=== PATIENT | female | born 1990 | race Two or more races ===

== ENCOUNTER 2018-06-18 10:54 | Emergency (ER) | payer OTHER ==
[2018-06-18 10:58] VITALS: BP 118/76; PULSE 92; TEMP 99.5; BMI 24.5
[2018-06-18] MEDS ORDERED: PENICILLIN G BENZATHINE 1,200,000 UNIT/2 ML PFS IM ONE (11:26)
[2018-06-18] MEDS ORDERED: DEXAMETHASONE LIQUID 0.5 MG/5 ML 240 ML BULK BOTTLE PO ONE (11:26)
--- NOTE | 2018-06-18 11:29 | PDOC ---
History of Present Illness - General Chief Complaint: Cold Symptoms Stated Complaint: COLD SYMPTOMS Time Seen by Provider: 06/18/18 11:14 - History of Present Illness Initial Comments: 06/18/18 11:27 27-year-old female without comorbidities presents for evaluation of sore throat and subjective fever times one day. Past History - Past Medical History Allergies/Adverse Reactions: Allergies Allergy/AdvReac Type Severity Reaction Status Date / Time No Known Allergies Allergy Verified 06/18/18 10:58 Home Medications: Ambulatory Orders NK [No Known Home Medication] 06/18/18 COPD: No CHF: No Other medical history: sickle cell thalasemia - Immunization History Immunization Up to Date: No - Suicide/Smoking/Psychosocial Hx Smoking History: Never smoked Have you smoked in the past 12 months: No Information on smoking cessation initiated: No Hx Alcohol Use: No Drug/Substance Use Hx: No Review of Systems - Review of Systems Constitutional: Yes: Fever HEENTM: Yes: Throat Pain *Physical Exam - Vital Signs Last Vital Signs Temp Pulse Resp BP Pulse Ox 99.5 F 92 H 16 118/76 99 06/18/18 10:55 06/18/18 10:55 06/18/18 10:55 06/18/18 10:55 06/18/18 10:55 - Physical Exam Comments: 06/18/18 11:27 HEAD: NC/AT EYES: Conjuntiva clear Ears: Canals and TM's normal NOSE: No d/c THROAT: Moist mucous membrances, oral pharanx erythemic with exudate, uvula midline NECK: Supple without adenopathy CARDIAC: S1 S2 LUNGS: CTA Full and Equal breath sounds ABDOMEN: Soft NT ND MS: Full ROM in all joints without edema NEUROLOGIC: No gross sensory or motor deficits, NVID SKIN: Normal color and temperature no lesions or rashes Moderate Sedation - Procedure Monitoring Vital Signs: Procedure Monitoring Vital Signs Temperature 99.5 F 06/18/18 10:55 Pulse Rate 92 H 06/18/18 10:55 Respiratory Rate 16 06/18/18 10:55 Blood Pressure 118/76 06/18/18 10:55 O2 Sat by Pulse Oximetry (%) 99 06/18/18 10:55 *DC/Admit/Observation/Transfer Diagnosis at time of Disposition: Strep pharyngitis - Discharge Dispostion Disposition: HOME Condition at time of disposition: Stable Decision to Admit order: No - Referrals Referrals: Ezra Herman [Non Staff, Medical] - - Patient Instructions Printed Discharge Instructions: Strep Throat, DI for Strep Throat Additional Instructions: He received a dose of antibiotics in the emergency room. This was through injection and is a one-time dose she do not require further treatment. He will also received a dose of steroids which will help with swelling and pain. Warm salt water gargles 5-6 times a day will also help her pain. He may take Tylenol as directed. Follow-up with primary care physician one to 2 days for further evaluation and treatment options and return to the emergency room should symptoms worsen or go unresolved. - Post Discharge Activity
[2018-06-18] MEDS ORDERED: PENICILLIN G BENZATHINE 2,400,000 UNIT/4 ML PFS ONE (11:35)
[2018-06-18] MEDS ORDERED: DEXAMETHASONE SOD PHOSPHATE 10 MG/1 ML VIAL ONE (11:35)
== END 2018-06-18 12:00 | disposition home or self-care (01) ==
LOC: JERFT 10:54
DX: J02.0 Streptococcal pharyngitis (principal)
CPT/HCPCS: 96372; 99281-25

== ENCOUNTER 2018-08-25 20:45 | Emergency (ER) | payer OTHER ==
[2018-08-25 21:08] VITALS: BP 102/61; PULSE 70; TEMP 98.3; BMI 25.2
[2018-08-25] MEDS ORDERED: KETOROLAC TROMETHAMINE 30 MG/1 ML VIAL IM ONE (21:08)
--- NOTE | 2018-08-25 21:08 | PDOC ---
Rapid Medical Evaluation Time Seen by Provider: 08/25/18 21:05 Medical Evaluation: Allergies Allergy/AdvReac Type Severity Reaction Status Date / Time No Known Allergies Allergy Verified 06/18/18 10:58 08/25/18 21:05 I have performed a brief in-person evaluation of this patient The patient present with a chief complaint of: upper back pain x 4 days. Patient reports upper back pain x 4 days with no injury or heavy lifting. States took otc medication with no relief of pain Pertinent physical exam findings: NAD even and unlabored breathing no mid spinal tenderness I have ordered the following: urine preg, analgesia The patient will proceed to the ED for further evaluation. Discharge Disposition - Diagnosis Back pain - Referrals - Patient Instructions - Post Discharge Activity
[2018-08-25] MEDS ORDERED: KETOROLAC TROMETHAMINE 30 MG/1 ML VIAL ONE (22:49)
--- NOTE | 2018-08-25 22:50 | PDOC ---
History of Present Illness - General Chief Complaint: Back Pain Stated Complaint: BAD BACK PAIN Time Seen by Provider: 08/25/18 21:05 - History of Present Illness Initial Comments: 08/25/18 22:48 28-year-old female without comorbidities presents for evaluation of upper back pain without systemic symptoms 4 days. Pain exacerbated with rotation of the head. Past History - Past Medical History Allergies/Adverse Reactions: Allergies Allergy/AdvReac Type Severity Reaction Status Date / Time No Known Allergies Allergy Verified 06/18/18 10:58 Home Medications: Ambulatory Orders Cyclobenzaprine HCl [Flexeril 10 mg] 10 mg PO HS PRN #10 tablet 08/25/18 Ibuprofen [Motrin -] 600 mg PO TID #30 tablet 08/25/18 COPD: No CHF: No - Immunization History Immunization Up to Date: No - Suicide/Smoking/Psychosocial Hx Smoking History: Unknown if ever smoked Have you smoked in the past 12 months: No Hx Alcohol Use: No Drug/Substance Use Hx: No Review of Systems - Review of Systems Musculoskeletal: Yes: Back Pain *Physical Exam - Vital Signs Last Vital Signs Temp Pulse Resp BP Pulse Ox 98.3 F 70 20 102/61 100 08/25/18 21:05 08/25/18 21:05 08/25/18 21:05 08/25/18 21:05 08/25/18 21:05 - Physical Exam Comments: 08/25/18 22:48 There is tenderness about the right levator scapula. Exacerbated with head rotation and neck flexion. 5 out of 5 strength in bilateral upper extremities without gross sensorimotor deficits neurovascularly intact. Medical Decision Making - Medical Decision Making 08/25/18 22:48 Patient reassures me there is no chance of . I will cancel test allow her to have the shot of Toradol discharge with Tylenol instructions and a prescription for Motrin and Flexeril with orthopedic spine surgery follow- up. She is in agreement with the plan. *DC/Admit/Observation/Transfer Diagnosis at time of Disposition: Back pain - Discharge Dispostion Disposition: HOME Condition at time of disposition: Stable Decision to Admit order: No - Referrals Referrals: Pepito Garner MD [Staff Physician] - - Patient Instructions Printed Discharge Instructions: Muscle Strain, DI for Back Spasm, DI for Thoracic Back Pain Additional Instructions: Return to the emergency room for worsening symptoms. Please follow-up with orthopedic spine surgery in 1-2 days for further evaluation and treatment options. Motrin is one tablet 3 times a day with food. Please discontinue the medication if it bothers her stomach. The muscle relaxers one tablet before bedtime. Will make you sleepy. Again return to the emergency room should symptoms worsen and follow-up with orthopedic spine surgery in 1-2 days for further evaluation and treatment options. - Post Discharge Activity
== END 2018-08-25 23:07 | disposition home or self-care (01) ==
LOC: JERFT 20:45
PROC: 3E0233Z Introduction of Anti-inflammatory into Muscle, Percutaneous Approach (ICD-10-PCS; principal; 2018-08-25)
DX: M54.9 Dorsalgia, unspecified (principal)
CPT/HCPCS: 96372; 99281-25

== ENCOUNTER 2019-03-10 15:20 | Emergency (ER) | payer OTHER ==
[2019-03-10 15:32] VITALS: BP 121/67; PULSE 87; TEMP 99.1; BMI 24.2
[2019-03-10] MEDS ORDERED: PENICILLIN G BENZATHINE 1,200,000 UNIT/2 ML PFS IM ONE ×2 (15:58→16:14)
[2019-03-10] MEDS ORDERED: DEXAMETHASONE LIQUID 0.5 MG/5 ML PO ONE (15:58)
--- NOTE | 2019-03-10 16:05 | PDOC ---
History of Present Illness - General Chief Complaint: Sore Throat Stated Complaint: SORE THROAT Time Seen by Provider: 03/10/19 15:29 - History of Present Illness Initial Comments: 03/10/19 15:58 28-year-old female without comorbidities presents for evaluation of sore throat x1 day Past History - Past Medical History Allergies/Adverse Reactions: Allergies Allergy/AdvReac Type Severity Reaction Status Date / Time No Known Allergies Allergy Verified 03/10/19 15:32 Home Medications: Ambulatory Orders Cyclobenzaprine HCl [Flexeril 10 mg] 10 mg PO HS PRN #10 tablet 08/25/18 Ibuprofen [Motrin -] 600 mg PO TID #30 tablet 08/25/18 COPD: No CHF: No - Immunization History Immunization Up to Date: No - Psycho Social/Smoking Cessation Hx Smoking History: Never smoked Have you smoked in the past 12 months: No Hx Alcohol Use: No Drug/Substance Use Hx: No Review of Systems - Review of Systems Constitutional: No: Fever HEENTM: Yes: Throat Swelling, Difficulty Swallowing *Physical Exam - Vital Signs Last Vital Signs Temp Pulse Resp BP Pulse Ox 99.1 F 87 18 121/67 100 03/10/19 15:29 03/10/19 15:29 03/10/19 15:29 03/10/19 15:29 03/10/19 15:29 - Physical Exam Comments: 03/10/19 15:59 HEAD: NC/AT EYES: Conjuntiva clear Ears: Canals and TM's normal NOSE: No d/c THROAT: Moist mucous membrances, oral pharanx erythemic with exudate, uvula midline NECK: Supple without adenopathy CARDIAC: S1 S2 LUNGS: CTA Full and Equal breath sounds ABDOMEN: Soft NT ND MS: Full ROM in all joints without edema NEUROLOGIC: No gross sensory or motor deficits, NVID SKIN: Normal color and temperature no lesions or rashes Medical Decision Making - Medical Decision Making 03/10/19 15:59 Treatment options discussed patient elected Bicillin and Decadron Discharge - Discharge Information Problems reviewed: Yes Clinical Impression/Diagnosis: Strep pharyngitis Condition: Stable Disposition: HOME - Admission No - Follow up/Referral Referrals: Luis Pickard MD [Staff Physician] - - Patient Discharge Instructions Additional Instructions: You were given a one-time injection today of penicillin which will treat strep throat. You were given also a long-acting steroid. You should not require any anti-inflammatories from this point forward you may take Tylenol for pain and perform warm salt water gargles 5-6 times a day. Return to the emergency room for worsening symptoms and without fail follow-up with your primary care physician in 1 to 2 days for further evaluation and treatment options. - Post Discharge Activity
[2019-03-10] MEDS ORDERED: DEXAMETHASONE SOD PHOSPHATE 10 MG/1 ML VIAL ONE (16:14)
== END 2019-03-10 16:33 | disposition home or self-care (01) ==
LOC: JERFT 15:20
DX: J02.0 Streptococcal pharyngitis (principal); B95.0 Streptococcus, group A, as the cause of diseases classified elsewhere
CPT/HCPCS: 87880; 96372; 99281-25